=== PATIENT | male | born 1980 | race Caucasian/White ===

== ENCOUNTER 2018-06-27 20:17 | Emergency (ER) | payer SELFPAY ==
[2018-06-27 20:21] VITALS: BP 136/92
--- NOTE | 2018-06-27 20:29 | ER Report ---
History and Physical Time Seen By MD: 20:26 HPI/ROS CHIEF COMPLAINT: Confusion, agitation HISTORY OF PRESENT ILLNESS: 37-year-old male traveling from [place], [place] to [place]. Was found in a [employer] store agitated and yelling. Police were called. Patient apparently having some car trouble during his travels. Patient was brought in by police voluntarily. He's wishing admission for mental health treatment. Patient is very evasive about his past previous medical history and mental health history. Patient needs to being on medications in the past. He admits to heavy cannabis use, which she states she's been sober from alcohol and cannabis for several weeks. He appears with a subtle undertone of being mildly agitated. His speech is very measured and pressured. 1 minute. He is very calm and cooperative. When certain questions are asked, he becomes agitated and his speech very pressured as if he is about to explode. Patient denies suicidal ideation. Patient denies homicidal ideation. REVIEW OF SYSTEMS: Respiratory: No cough, no dyspnea. Cardiovascular: No chest pain, no palpitations. Gastrointestinal: No vomiting, no abdominal pain. Musculoskeletal: No back pain. Allergies: Coded Allergies: cefaclor (Verified Allergy, Intermediate, 06/27/18) HIVES clarithromycin (Verified Allergy, Intermediate, 06/27/18) HIVES Home Meds No Active Prescriptions or Reported Meds Reviewed Nurses Notes: Yes Old Medical Records Reviewed: Yes Constitutional Vital Sign - Last 24 Hours 06/27/18 06/27/18 06/27/18 06/27/18 20:20 20:21 20:32 20:47 Temp 98.2 Pulse 83 79 90 Resp 16 B/P (MAP) 136/92 (107) 136/92 Pulse Ox 95 95 94 O2 Delivery Room Air 06/27/18 06/27/18 21:02 21:17 Pulse 68 72 Pulse Ox 92 90 Physical Exam General Appearance: The patient is alert, has no immediate need for airway protection and no current signs of toxicity. Vital signs stable, afebrile, pulse ox normal HEENT: Pupils equal and round no injection. Oropharynx with moist membranes, no erythema Respiratory: Chest is non tender, lungs are clear to auscultation. Cardiac: regular rate and rhythm Gastrointestinal: Abdomen is soft and non tender, no masses, bowel sounds normal. Musculoskeletal: Neck: Neck is supple and non tender. Extremities have full range of motion and are non tender. Skin: No rashes or lesions. DIFFERENTIAL DIAGNOSIS: After history and physical exam differential diagnosis was considered for depression including functional and major depression, situational depression, medication side effect, acute psychosis, schizophrenia, drugs and alcohol abuse. Medical Decision Making Data Points Result Diagram: 06/27/18205406/27/182054 Laboratory Hematology Test 06/27/18 20:55 06/27/18 21:21 Red Blood Count 5.08 M/uL (4.00-5.60) Mean Corpuscular Volume 89.3 fL (80.0-96.0) Mean Corpuscular Hemoglobin 30.4 pg (26.0-33.0) Mean Corpuscular Hemoglobin Concent 34.1 g/dL (32.0-36.0) Red Cell Distribution Width 13.3 % (11.5-14.5) Mean Platelet Volume 8.6 fL (7.2-11.1) Neutrophils (%) (Auto) 63.8 % (39.4-72.5) Lymphocytes (%) (Auto) 24.9 % (17.6-49.6) Monocytes (%) (Auto) 9.3 % (4.1-12.4) Eosinophils (%) (Auto) 1.9 % (0.4-6.7) Basophils (%) (Auto) 0.1 % (0.3-1.4) Nucleated RBC Relative Count (auto) 0.1 /100WBC Neutrophils # (Auto) 5.2 K/uL (2.0-7.4) Lymphocytes # (Auto) 2.0 K/uL (1.3-3.6) Monocytes # (Auto) 0.8 K/uL (0.3-1.0) Eosinophils # (Auto) 0.2 K/uL (0.0-0.5) Basophils # (Auto) 0.0 K/uL (0.0-0.1) Nucleated RBC Absolute Count (auto) 0.01 K/uL Sodium Level 141 mmol/L (137-145) Potassium Level 3.1 mmol/L (3.5-5.0) Chloride Level 102 mmol/L (98-107) Carbon Dioxide Level 26 mmol/L (22-30) Blood Urea Nitrogen 8 mg/dl (9-21) Creatinine 0.80 mg/dl (0.66-1.25) Glomerular Filtration Rate Calc > 60.0 Random Glucose 104 mg/dl (75-110) Calcium Level 9.2 mg/dl (8.4-10.2) Magnesium Level 2.1 mg/dl (1.7-2.2) Total Bilirubin 0.5 mg/dl (0.2-1.3) Aspartate Amino Transf (AST/SGOT) 21 U/L (0-35) Alanine Aminotransferase (ALT/SGPT) 40 U/L (0-56) Alkaline Phosphatase 60 U/L (0-126) Total Protein 7.1 g/dl (6.3-8.2) Albumin 4.2 g/dl (3.5-5.0) Thyroid Stimulating Hormone (TSH) 1.22 uIU/ml (0.46-4.68) Salicylates Level < 10 mg/L Salicylate Last Dose Date unk Acetaminophen Level < 10 ug/ml Serum Alcohol < 10 mg/dl Urine Color Colorless Urine Clarity Clear Urine pH 6.0 pH (4.8-9.5) Urine Specific [place] 1.001 Urine Protein Negative mg/dL (NEGATIVE) Urine Glucose (UA) Negative mg/dL (NEGATIVE) Urine Ketones Negative mg/dL (NEGATIVE) Urine Blood Negative (NEGATIVE) Urine Nitrite Negative (NEGATIVE) Urine Bilirubin Negative (NEGATIVE) Urine Urobilinogen Negative mg/dL (0.2-1.9) Urine Leukocyte Esterase Negative (NEGATIVE) Urine RBC None /HPF (0-2/HPF) Urine WBC <1 /HPF (0-5/HPF) Urine Squamous Epithelial Cells None /LPF (</=FEW) Urine Bacteria Negative /HPF (NONE-FEW) Urine Mucus None /HPF (NONE-FEW) Urine Opiates Screen Negative Urine Barbiturates Screen Negative Ur Tricyclic Antidepressants Screen Negative Urine Phencyclidine Screen Negative Urine Amphetamines Screen Negative Urine Benzodiazepines Screen Negative Urine Cocaine Screen Negative Urine Cannabinoids Screen Positive Chemistry Test 06/27/18 20:55 06/27/18 21:21 White Blood Count 8.1 k/uL (4.5-11.0) Red Blood Count 5.08 M/uL (4.00-5.60) Hemoglobin 15.5 g/dL (14.0-18.0) Hematocrit 45.4 % (42.0-52.0) Mean Corpuscular Volume 89.3 fL (80.0-96.0) Mean Corpuscular Hemoglobin 30.4 pg (26.0-33.0) Mean Corpuscular Hemoglobin Concent 34.1 g/dL (32.0-36.0) Red Cell Distribution Width 13.3 % (11.5-14.5) Platelet Count 373 K/uL (150-450) Mean Platelet Volume 8.6 fL (7.2-11.1) Neutrophils (%) (Auto) 63.8 % (39.4-72.5) Lymphocytes (%) (Auto) 24.9 % (17.6-49.6) Monocytes (%) (Auto) 9.3 % (4.1-12.4) Eosinophils (%) (Auto) 1.9 % (0.4-6.7) Basophils (%) (Auto) 0.1 % (0.3-1.4) Nucleated RBC Relative Count (auto) 0.1 /100WBC Neutrophils # (Auto) 5.2 K/uL (2.0-7.4) Lymphocytes # (Auto) 2.0 K/uL (1.3-3.6) Monocytes # (Auto) 0.8 K/uL (0.3-1.0) Eosinophils # (Auto) 0.2 K/uL (0.0-0.5) Basophils # (Auto) 0.0 K/uL (0.0-0.1) Nucleated RBC Absolute Count (auto) 0.01 K/uL Glomerular Filtration Rate Calc > 60.0 Calcium Level 9.2 mg/dl (8.4-10.2) Magnesium Level 2.1 mg/dl (1.7-2.2) Total Bilirubin 0.5 mg/dl (0.2-1.3) Aspartate Amino Transf (AST/SGOT) 21 U/L (0-35) Alanine Aminotransferase (ALT/SGPT) 40 U/L (0-56) Alkaline Phosphatase 60 U/L (0-126) Total Protein 7.1 g/dl (6.3-8.2) Albumin 4.2 g/dl (3.5-5.0) Thyroid Stimulating Hormone (TSH) 1.22 uIU/ml (0.46-4.68) Salicylates Level < 10 mg/L Salicylate Last Dose Date unk Acetaminophen Level < 10 ug/ml Serum Alcohol < 10 mg/dl Urine Color Colorless Urine Clarity Clear Urine pH 6.0 pH (4.8-9.5) Urine Specific [place] 1.001 Urine Protein Negative mg/dL (NEGATIVE) Urine Glucose (UA) Negative mg/dL (NEGATIVE) Urine Ketones Negative mg/dL (NEGATIVE) Urine Blood Negative (NEGATIVE) Urine Nitrite Negative (NEGATIVE) Urine Bilirubin Negative (NEGATIVE) Urine Urobilinogen Negative mg/dL (0.2-1.9) Urine Leukocyte Esterase Negative (NEGATIVE) Urine RBC None /HPF (0-2/HPF) Urine WBC <1 /HPF (0-5/HPF) Urine Squamous Epithelial Cells None /LPF (</=FEW) Urine Bacteria Negative /HPF (NONE-FEW) Urine Mucus None /HPF (NONE-FEW) Urine Opiates Screen Negative Urine Barbiturates Screen Negative Ur Tricyclic Antidepressants Screen Negative Urine Phencyclidine Screen Negative Urine Amphetamines Screen Negative Urine Benzodiazepines Screen Negative Urine Cocaine Screen Negative Urine Cannabinoids Screen Positive Toxicology Test 06/27/18 20:55 06/27/18 21:21 Salicylates Level < 10 mg/L Salicylate Last Dose Date unk Acetaminophen Level < 10 ug/ml Serum Alcohol < 10 mg/dl Urine Opiates Screen Negative Urine Barbiturates Screen Negative Ur Tricyclic Antidepressants Screen Negative Urine Phencyclidine Screen Negative Urine Amphetamines Screen Negative Urine Benzodiazepines Screen Negative Urine Cocaine Screen Negative Urine Cannabinoids Screen Positive Urinalysis Test 06/27/18 21:21 Urine Color Colorless Urine Clarity Clear Urine pH 6.0 pH (4.8-9.5) Urine Specific [place] 1.001 Urine Protein Negative mg/dL (NEGATIVE) Urine Glucose (UA) Negative mg/dL (NEGATIVE) Urine Ketones Negative mg/dL (NEGATIVE) Urine Blood Negative (NEGATIVE) Urine Nitrite Negative (NEGATIVE) Urine Bilirubin Negative (NEGATIVE) Urine Urobilinogen Negative mg/dL (0.2-1.9) Urine Leukocyte Esterase Negative (NEGATIVE) Urine RBC None /HPF (0-2/HPF) Urine WBC <1 /HPF (0-5/HPF) Urine Squamous Epithelial Cells None /LPF (</=FEW) Urine Bacteria Negative /HPF (NONE-FEW) Urine Mucus None /HPF (NONE-FEW) ED Course/Re-evaluation ED Course Patient was admitted to an examination room. H&P was done. The differential diagnoses was considered. Patient with acute manic anxiety, agitation, likely untreated schizophrenia. She denies suicidal ideation. His speech is very pressured. Patient's been self-medicating with cannabis likely excessive doses. Patient may be withdrawing from cannabis now. Patient was medicated with Z yprexa 10 mg by mouth, Ativan 2 mg by mouth and Benadryl 50 mg by mouth. He was admitted to behavioral health after speaking with Dr. English 06/27/2018 9:53:00 pm case discussed with Dr. Hortensia English psychiatrist on-call, who accepts the patient for admission to behavioral health services Decision to Disposition Date: Jun 27, 2018 Decision to Disposition Time: 21:29 Depart Departure Latest Vital Signs Vital Signs Date Time Temp Pulse Resp B/P (MAP) Pulse Ox O2 Delivery O2 Flow Rate FiO2 06/27/18 21:17 72 90 06/27/18 20:21 98.2 16 136/92 Room Air Impression: Primary Impression: Altered mental status Additional Impressions: Anxiety Agitation Cannabis abuse Condition: Improved Disposition: XFER TO [facility] New Scripts No Active Prescriptions or Reported Meds Problem Qualifiers Primary Impression: Altered mental status Altered mental status type: unspecified Qualified Codes: R41.82 - Altered mental status, unspecified TOSHIA GOMEZ DO Jun 27, 2018 20:29
[2018-06-27 21:25] LABS: PLATELET COUNT, AUTOMATED 373 K/uL (150-450)
[2018-06-27] MEDS ORDERED: LORazepam 1 MG TAB PO ONE (21:40)
[2018-06-27] MEDS ORDERED: OLANZapine ZYDIS ODT 5MG TABDP PO ONE (21:40)
[2018-06-27] MEDS ORDERED: diphenhydrAMINE 25 MG CAP PO ONE (21:55)
[2018-06-29] MEDS ORDERED: LITH300T18 PO (12:52)
[2018-06-29] MEDS ORDERED: OLAN5TAB25 PO (12:52)
[2018-06-29] MEDS ORDERED: OLAN10TA21 PO (12:52)
== END 2018-06-28 00:18 ==
LOC: ER 20:40
DX: R41.82 Altered mental status, unspecified (principal)
CPT/HCPCS: 36415; 80305; 80320; 80329; 81001; 83735; 84443; 85025; 99284; Q0163; 82040; 82247; 82310; 82374; 82435; 82565; 82947; 84075; 84132; 84155; 84295; 84450; 84460; 84520

== ENCOUNTER 2018-06-27 23:23 | Inpatient (IN) | payer SELFPAY ==
[~2018-06-27] VITALS: Ht 177.8 cm; Wt 101.2 kg
[2018-06-28] MEDS ORDERED: ACETAMINOPHEN 325 MG TAB PO PRN (01:00)
[2018-06-28] MEDS ORDERED: MAG HYD/AL HYD/SIMETH 30ML UDC PO PRN (01:00)
[2018-06-28] MEDS: MULTIVITAMINS TAB PO SCH (08:31)
[2018-06-28] MEDS: LITHIUM CARBONATE 300 MG TABCR PO SCH ×2 (10:30→20:36)
[2018-06-28] MEDS: OLANZapine 5 MG TAB PO SCH (10:30)
[2018-06-28 13:13] VITALS: BP 102/58
[2018-06-28] MEDS: OLANZapine 5 MG TAB PO PRN (15:02)
--- NOTE | 2018-06-28 19:06 | HISTORY AND PHYSICAL ---
DATE OF ADMISSION: June 27, 2018 The patient was seen on June 28, 2018, at approximately 11:00 a.m. for this dictation. CHIEF COMPLAINT "Because I had a breaking point, and I don't want to talk about it." HISTORY OF PRESENT ILLNESS This is a 37-year-old man with a past history of bipolar disorder who was brought to the Emergency Room voluntarily by the [place] police after they had been called to a local car parts store where he was acting strangely. In the Emergency Room, he acknowledged a history of bipolar disorder and that he wanted to be hospitalized to get back on his medications. In the ER and also during our interview today, the patient is a fair historian at best due to ongoing wero. He does acknowledge a history of bipolar disorder and says that in the past he has taken Risperdal, but has not been on any medication for at least three or four weeks. He reports racing thoughts and says he feels agitated very easily. He says he is traveling from [place] on his way to [place] where his family lives. He says he has had trouble sleeping, that his thoughts race, that he feels better when he takes medication. PAST MENTAL HEALTH HISTORY The patient has been hospitalized four or five times psychiatrically. He has two previous stays at the [facility] in [place], [place]. It sounds like he has been off his medication for about the past four weeks. Risperdal is the only medication that he remembers taking in the past. He denies any history of suicide attempt ever and says he has never become physically aggressive towards others. He does acknowledge previous history of outpatient mental health treatment in [place]. FAMILY PSYCHIATRIC HISTORY The patient reports bipolar disorder and schizophrenia in his sister, his father, and in his paternal grandmother. ALLERGIES The patient is allergic to CECLOR and BIAXIN. PAST SURGICAL HISTORY 1. He has had two tendon repairs to his hand. 2. Carpal tunnel surgery. 3. Cholecystectomy. 4. Pilonidal cyst which was drained on May 30 of this year. He states he took a 10-day course of Bactrim after the cyst was drained. SOCIAL HISTORY The patient was born in [place], [place], and has spent his whole life there. He has family members still living there. He did attend school, but dropped out in the 12th grade. He has been , but has been for the past seven years. He and his ex- have three children, all of whom live in [place]. In March, he left [place] to go to [place] where a friend was living. He did get various jobs in [place] over this past summer, but his friend apparently kicked him out about a month ago. He has been living in a tent since then. His grandfather apparently sent him some money so that he could get back to [place]. He recently bought a car and started driving, but his car broke down in [place]. LEGAL HISTORY There may be warrants in [place] for not paying child support. VICTIM ISSUES He denies any history of sexual or physical abuse. SUBSTANCE ABUSE HISTORY He acknowledges using cannabis occasionally. He has tried cocaine six times ever in his life. He rarely uses alcohol. PHYSICAL EXAMINATION Please see the emergency room physician's report. VITAL SIGNS: Temperature 98.7, pulse is 38, respiratory rate is 14, blood pressure 102/58, pulse ox is 96 on room air. LABORATORY STUDIES CBC is within normal limits. Chemistry panel shows a potassium low at 3.1, BUN low at 8. The remainder of the chemistry panel is normal. TSH is normal at 1.22. Drug screen is positive for cannabinoids, but otherwise negative. Serum alcohol is nil. Urinalysis is within normal limits. MENTAL STATUS EXAMINATION The patient is disheveled with very dirty hands and fingernails, dressed in hospital scrubs. There was some psychomotor agitation with gesturing with his hands and arms and shifting about in his chair, but he did stay seated. His speech was mostly rapid but understandable. His affect was labile, at times somewhat irritable and at other times euthymic. Thought process was significant for tangential thoughts though able to be logical and goal directed to closed- ended questions. Thought content was positive for grandiose delusions. He denied auditory hallucinations and denied visual hallucinations, although he did talk about God putting conversations into his mind. He denied homicidal ideation and denied suicidal ideation. He was not internally preoccupied, not responding to internal stimulation. He was alert and oriented to person, to [place], and he understood that he was in a hospital. He was oriented to the month and the year. Memory was intact for immediate, recent, and remote recall. Intelligence was average based on interview. Insight and judgment are poor due to wero with psychosis. ASSESSMENT 1. Bipolar I disorder, manic with psychotic features. 2. Cannabis use disorder, mild. PLAN We will admit the patient to [facility], and he will be maintained on aggression and elopement precautions. He will attend individual and group therapies. We discussed medications, and he is willing to initiate a trial of lithium 300 mg b.i.d. and Zyprexa 5 mg q.a.m. and 10 mg at bedtime for wero with psychosis. Laboratory studies will be done as indicated to follow lithium levels. Estimated length of stay is four to five days. We will hold a team meeting with his mother on the speaker phone tomorrow to gather further collateral information and to begin establishing a discharge plan. SHAHID
[2018-06-28] MEDS ORDERED: OLANZapine 5 MG TAB PO SCH (21:00)
[2018-06-29] MEDS ORDERED: OLANZapine 5 MG TAB PO SCH
[2018-06-29] MEDS ORDERED: LITHIUM CARBONATE 300 MG TABCR PO SCH
[2018-06-29 00:29] VITALS: BP 128/80
[2018-06-29] MEDS: diphenhydrAMINE 25 MG CAP PO PRN ×2 (04:26→08:11)
[2018-06-29] MEDS: LORazepam 1 MG TAB PO PRN ×2 (04:26→08:10)
[2018-06-29] MEDS: OLANZapine 5 MG TAB PO PRN (04:29)
[2018-06-29] MEDS: LITHIUM CARBONATE 300 MG TABCR PO SCH (08:12)
[2018-06-29] MEDS: MULTIVITAMINS TAB PO SCH (08:12)
[2018-06-29] MEDS: OLANZapine 5 MG TAB PO SCH (08:13)
[2018-06-29 12:30] VITALS: BP 118/78
[2018-06-29] MEDS ORDERED: LITH300T18 PO (12:52)
[2018-06-29] MEDS ORDERED: OLAN5TAB25 PO (12:52)
[2018-06-29] MEDS ORDERED: OLAN10TA21 PO (12:52)
--- NOTE | 2018-06-29 14:58 | BHS Discharge Summary ---
[facility] Discharge Summary Nszs-[id number] Encounter Date: Jun 29, 2018 Otci-pg-Ivkg Encounter Time: 10:15 Reason-Hosp/Final Diag (DSM-V): (1) Bipolar 1 disorder with moderate wero Hospital Course & Plan: Pt was admitted on a voluntary basis to [facility]. He was moderately manic on admission. He cooperated with treatment although at times he would become loud and pressured, protesting some minor frustration like being told he needed to wait for something. He was mildly religiously preoccupied. He denied AH other than mentioning hearing God's word. He never appeared grossly psychotic nor internally preoccupied. He started zyprexa 5 mg q am and 10 mg q hs, along with lithium 300 mg BID. These were well tolerated. By day two these meds had helped and he was less labile, calmer, not oversedated. We spoke with his mother by speaker phone and she corroborated pt's history of bipolar, history of episodes of good med compliance followed by going off his meds. She agreed with pt's plan to return to [place] where he has extensive family, and said she would help him return to treatment at his [facility]. Pt agreed with this plan. He and mother understood our recommendation for medication compliance and regular follow up. She and pt understood need for blood tests periodically to monitor lithium level, thyroid function, and renal function. By day of discharge he was still mildly hypomanic but much improved, and was not a danger to self or others in my opinion, and he requested discharge to continue traveling home. Discharge meds are unchanged from above. Physical Exam Latest Vital Signs Vital Signs 06/29/18 12:30 Temp 98.2 Pulse 92 Resp 16 B/P (MAP) 118/78 (91) Pulse Ox 96 O2 Delivery Room Air Mental Status Exam General Appearance: Casual, Well Groomed, Good Eye Contact, Cooperative, Polite, Good Interaction Speech: Clear, Spontaneous, Normal Rate, Normal Rhythm, Normal Volume, Normal Tone, Other (a little rapid when he was trying to make a point but interruptible) Mood: Euthymic Affect: Full and Appropriate Thought Process: Organized, Logical, Goal Directed, Other (circumstantial at times) Thought Content: No Suicidal Ideation, No Homicidal Ideation, No Delusions, No Auditory Halllucinations, No Visual Hallucinations, No Thought Broadcasting, No Ideas of Reference, No Obsessions, No Compulsions, No Other Sensorium: Clear Cognition: Alert & Oriented-Person, Alert & Oriented-Place, Alert & Oriented- Time, Xyykj-Okqwgila-Rwi[place]gl Memory: Immediate, Recent, Remote Intelligence: Average Insight Judgment: Fair Departure Condition: Improved Discharge to: Home Discharge Instructions Home Meds Reported Medications [place] Carbonate (LITHIUM CARBONATE) 300 Mg Tablet, 300 MG PO BID 06/29/18 Olanzapine (ZYPREXA) 10 Mg Tablet, 10 MG PO QHS 06/29/18 Olanzapine (ZYPREXA) 5 Mg Tablet, 5 MG PO QDAY 06/29/18 Multpiple Antipsychotics Used: No Diet: Regular Special Instructions: Instructions: Discharge to home with F/U to therapy and med management. HERLINDA SETHI MD Jun 29, 2018 14:58
== END 2018-06-29 13:05 | disposition home or self-care (01) | DRG 885 ==
LOC: BHS 23:23 → UNDOADMIN 23:23 → BHS 06-28
PROVIDERS: ADMIT Psychiatry & Neurology Psychiatry; ATTEND Psychiatry & Neurology Psychiatry
DX: F31.2 Bipolar disorder, current episode manic severe with psychotic features (principal); Z81.8 Family history of other mental and behavioral disorders; Z88.8 Allergy status to other drugs, medicaments and biological substances; Z90.49 Acquired absence of other specified parts of digestive tract; Z59.0 Homelessness; Z91.14 Patient's other noncompliance with medication regimen
CPT/HCPCS: Q0163